=== PATIENT | male | born 1965 | race Caucasian/White ===

== ENCOUNTER 2019-09-24 12:35 | Emergency (ER) | payer OTHER ==
[~2019-09-24] VITALS: Ht 165.1 cm; Wt 114.3 kg
[2019-09-24 12:40] VITALS: BP_SYST 167
--- NOTE | 2019-09-24 12:40 | NUR ---
KIARRA EMT FROM HOME FOR ABD PAIN/ SUDDEN ONSET SINCE 1129. THIS IS HIS THIRD EPISODE STARTING ON Sunday09/21/2019. DENIES N/V/D. LAST BM THIS AM,SMALL AND FORMED
--- NOTE | 2019-09-24 12:45 | NUR ---
DR PEREA IN TO ASSESS
[2019-09-24] MEDS ORDERED: KETOROLAC TROMETHAMINE 30 MG VIAL IVP ONE (13:00)
[2019-09-24 13:07] LABS: BASOPHILS % (AUTO) 0.4 % (0.0-2.0); EOSINOPHILS # (AUTO) 0.1 K/uL (0.0-0.4); EOSINOPHILS % (AUTO) 1.7 % (0.0-4.0); HEMATOCRIT 49.7 % (36-54); HEMOGLOBIN 16.8 g/dL (14.0-18.0); LYMPHOCYTES # (AUTO) 1.8 K/uL (1.0-5.5); LYMPHOCYTES % (AUTO) 33.1 % (20.5-51.5); MEAN CORPUSCULAR HEMOGLOBIN 29 pg (27-31); MEAN CORPUSCULAR HGB CONC 34 % (32-36); MEAN CORPUSCULAR VOLUME 86 fL (79.0-98.0); MONOCYTES # (AUTO) 0.4 K/uL (0.0-1.0); MONOCYTES % (AUTO) 6.7 % (1.7-9.3); NEUTROPHILS # (AUTO) 3.1 K/uL (1.8-7.7); NEUTROPHILS % (AUTO) 58.1 % (40.0-70.0); PLATELET COUNT (AUTO) 107 K/uL (130-430); RED BLOOD CELL COUNT(AUTO) 5.77 MIL/uL (4.2-6.2); RED CELL DISTRIBUTION WIDTH 14.1 % (9.0-15.0); WHITE BLOOD COUNT (AUTO) 5.3 K/uL (4.8-10.8)
--- NOTE | 2019-09-24 13:12 | NUR ---
LABS SENT / IV HL 18 GUAGE LT ARM. ALERT, CALM, RESP UNLABORED, SKIN WARM AND DRY. COMMUNICATES CLEARLY IN FULL COMPLETE SENTENCES. ABD LLQ TENDER AND FIRM. SR ON MONITOR 88 NO ECTOPY, HTN 170/93. PAIN IS INTERMITTENT IN SEVERITY AND HE IS GUARDED
[2019-09-24 13:17] LABS: CALCIUM 8.6 mg/dL (8.4-11.0); CREATININE 1.08 mg/dL (0.55-1.30)
--- NOTE | 2019-09-24 13:18 | NUR ---
SENT TO CT OF ABD
[2019-09-24 13:23] LABS: ALBUMIN 3.7 g/dL (3.4-4.8); TOTAL BILIRUBIN 1.2 mg/dL (0.0-1.0)
--- NOTE | 2019-09-24 13:55 | NUR ---
Patient given written and verbal discharge instructions and verbalizes understanding. ER MD discussed with patient the results and treatment provided. Patient in stable condition. ID arm band removed. IV catheter removed intact and dressing applied, no active bleeding. Rx of MIRALAX given. Patient educated on pain management and to follow up with PMD. Pain Scale 0/10. Opportunity for questions provided and answered. Medication side effect fact sheet provided.
[2019-09-24 14:25] VITALS: BP_SYST 129
== END 2019-09-24 14:25 | disposition home or self-care (01) ==
LOC: SED 12:35
DX: K59.00 Constipation, unspecified (principal); R10.32 Left lower quadrant pain; D69.6 Thrombocytopenia, unspecified; I10 Essential (primary) hypertension; E03.9 Hypothyroidism, unspecified
CPT/HCPCS: 36415; 80053; 83690; 74176; 85025; 96374; 99284; J1885

== ENCOUNTER 2019-09-27 05:46 | Emergency (ER) | payer OTHER ==
[~2019-09-27] VITALS: Ht 165.1 cm; Wt 115.7 kg
[2019-09-27 05:50] VITALS: BP_SYST 150
--- NOTE | 2019-09-27 05:50 | NUR ---
Patient to ER bed 4 to gown for evaluation. Side rails up. Report given to Daniel GAGE/ Jasmyne GAGE.
--- NOTE | 2019-09-27 05:52 | NUR ---
Patient came to ER. C/O blood in urine x today. Patient states "blood in urine this morning, lower back pain, came to ER on Sunday , Dx constipation." Hx Thyroid CA. A/O,X4, left lower back pain, pain rate 2/10, BP 150/98.
[2019-09-27] MEDS ORDERED: KETOROLAC TROMETHAMINE 30 MG VIAL IM ONE (06:00)
--- NOTE | 2019-09-27 06:01 | NUR ---
ER Dr. Ashraf at bedside examining patient.
--- NOTE | 2019-09-27 06:13 | NUR ---
Draw Hand drawn blood at bedside.
[2019-09-27 06:26] LABS: BASOPHILS % (AUTO) 0.4 % (0.0-2.0); EOSINOPHILS # (AUTO) 0.2 K/uL (0.0-0.4); EOSINOPHILS % (AUTO) 2.3 % (0.0-4.0); HEMOGLOBIN 15.9 g/dL (14.0-18.0); LYMPHOCYTES # (AUTO) 1.6 K/uL (1.0-5.5); LYMPHOCYTES % (AUTO) 24.2 % (20.5-51.5); MEAN CORPUSCULAR HEMOGLOBIN 29 pg (27-31); MEAN CORPUSCULAR HGB CONC 34 % (32-36); MEAN CORPUSCULAR VOLUME 87 fL (79.0-98.0); MONOCYTES # (AUTO) 0.6 K/uL (0.0-1.0); MONOCYTES % (AUTO) 9.2 % (1.7-9.3); NEUTROPHILS # (AUTO) 4.2 K/uL (1.8-7.7); NEUTROPHILS % (AUTO) 63.9 % (40.0-70.0); PLATELET COUNT (AUTO) 90 K/uL (130-430); WHITE BLOOD COUNT (AUTO) 6.6 K/uL (4.8-10.8)
[2019-09-27 06:37] LABS: CALCIUM 8.6 mg/dL (8.4-11.0); CREATININE 1.36 mg/dL (0.55-1.30); POTASSIUM 3.7 mmol/L (3.5-5.1)
[2019-09-27 06:42] LABS: ALBUMIN 3.4 g/dL (3.4-4.8); TOTAL BILIRUBIN 1.2 mg/dL (0.0-1.0)
[2019-09-27 06:46] LABS: BILIRUBIN,URINE 2+ (NEGATIVE); BLOOD, URINE 3+ (NEGATIVE); CLARITY/URINE SL CLOUDY (CLEAR); COLOR,URINE BROWN (YELLOW); GLUCOSE,URINE NEGATIVE (NEGATIVE); KETONES,URINE 2+ (NEGATIVE); LEUKOCYTE ESTERASE ,URINE TRACE (NEGATIVE); NITRITE, URINE POSITIVE (NEGATIVE); PH,URINE 6.5 (5.0-8.0); PROTEIN URINE 2+ (NEGATIVE)
[2019-09-27 07:10] VITALS: BP_SYST 143
--- NOTE | 2019-09-27 07:10 | NUR ---
Patient given written and verbal discharge instructions and verbalizes understanding. ER MD discussed with patient the results and treatment provided. Patient in stable condition. ID arm band removed. Rx of Agency and Levequin given. Patient educated on pain management and to follow up with PMD. Pain Scale 0/10. Opportunity for questions provided and answered. Medication side effect fact sheet provided.
[2019-09-27] MEDS ORDERED: LEVOFLOXACIN 500 MG TABLET PO ONE (07:15)
[2019-09-27 07:44] LABS: RBC,URINE 50-80 /HPF (0-3)
[2019-09-27 07:45] LABS: BACTERIA,URINE RARE /HPF (None Seen); CALCIUM OXALATE CRYSTALS,UR 0-10 /HPF (None Seen); URINE AMORPHOUS URATE 2+ /HPF (None Seen)
== END 2019-09-27 07:10 | disposition home or self-care (01) ==
LOC: SED 05:46
DX: N39.0 Urinary tract infection, site not specified (principal); R31.9 Hematuria, unspecified; R10.9 Unspecified abdominal pain; E03.9 Hypothyroidism, unspecified
CPT/HCPCS: 36415; 80053; 81000; 83690; 85025; 87086; 96372; 99283; J1885